=== PATIENT | male | born 1995 | race Caucasian/White ===

== ENCOUNTER 2018-03-23 11:19 | Emergency (ER) | payer OTHER ==
[2018-03-23 11:26] VITALS: BP 120/78; PULSE 88; TEMP 98.7; BMI 26.4
[2018-03-23] MEDS ORDERED: IBUPROFEN 400 MG TABLET (FP) PO ONE ×2 (12:05→12:13)
[2018-03-23] MEDS ORDERED: TOBRAMYCIN 0.3% OPHTH SOLN 5 ML BOTTLE OD ONE (12:24)
--- NOTE | 2018-03-23 12:24 | PDOC ---
History of Present Illness - General Chief Complaint: Respiratory Stated Complaint: COLD SYMPTOMS Time Seen by Provider: 03/23/18 11:33 History Source: Patient Exam Limitations: No Limitations - History of Present Illness Initial Comments: 03/23/18 12:25 , Hearing-impaired patinet able to read lips and mother helping sign language with complaints of, Moist cough came for evaluation of fevers, cough that's nonproductive, generalized body aches, runny nose and sore throat pain 4-5 days , but woke up today with bilateral erythema to eyes and yellowish drainage. Visual acuity is intact, denies any recent trauma or pain 03/23/18 14:58 03/23/18 15:00 Timing/Duration: reports: getting worse Severity: reports: mild, moderate Associated Symptoms: reports: chest pain/soreness, cough, earache, fever/chills , nasal congestion, nasal drainage, sore throat Past History - Travel Traveled outside of the country in the last 30 days: No Close contact w/someone who was outside of country & ill: No - Past Medical History Allergies/Adverse Reactions: Allergies Allergy/AdvReac Type Severity Reaction Status Date / Time No Known Allergies Allergy Verified 03/23/18 11:26 Home Medications: Ambulatory Orders Tobramycin 0.3% Ophth Soln [Tobrex Ophthalmic Solution -] 2 drop OS QID #1 drops 03/23/18 COPD: No Other medical history: deaf - Surgical History Abdominal Surgery: Yes (hernia repair) - Suicide/Smoking/Psychosocial Hx Smoking History: Never smoked Review of Systems - Review of Systems Able to Perform ROS?: Yes Is the patient limited Citizen [place] proficient: Yes Constitutional: Yes: Symptoms Reported, See HPI, Fever, Malaise HEENTM: Yes: Symptoms Reported, See HPI, Eye Pain, Blurred Vision, Tearing Respiratory: Yes: See HPI, Cough. No: Symptoms reported ABD/GI: No: Symptoms Reported : No: Symptoms Reported (nonproductive) Integumentary: No: Symptoms Reported All Other Systems: Reviewed and Negative *Physical Exam - Vital Signs Last Vital Signs Temp Pulse Resp BP Pulse Ox 98.7 F 88 18 120/78 99 03/23/18 11:22 03/23/18 11:22 03/23/18 11:22 03/23/18 11:22 03/23/18 11:22 - Physical Exam General Appearance: Yes: Nourished, Appropriately Dressed, Apparent Distress, Mild Distress HEENT: positive: Normal ENT Inspection, TMs Normal (congested but landmarks easily visualized), Pharynx Normal, Nasal Congestion, Rhinorrhea, Other ( bilateral erythematous conjunctiva with mild upper lid swelling. Has some yellowish drainage to bilateral inner canthus.). negative: Sinus Tenderness Neck: positive: Supple. 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 Treated with tobramycin drops for bilateral conjunctivitis, will follow up as needed *DC/Admit/Observation/Transfer Diagnosis at time of Disposition: Upper respiratory infection Qualifiers: URI type: unspecified viral URI Qualified Code(s): J06.9 - Acute upper respiratory infection, unspecified Conjunctivitis Qualifiers: Conjunctivitis type: acute Acute conjunctivitis type: unspecified Laterality: bilateral Qualified Code(s): H10.33 - Unspecified acute conjunctivitis, bilateral - Discharge Dispostion Disposition: HOME Condition at time of disposition: Stable Decision to Admit order: No - Prescriptions Prescriptions: Tobramycin 0.3% Ophth Soln [Tobrex Ophthalmic Solution -] 2 drop OS QID #1 drops - Referrals Referrals: Karen Iniguez FNP [Primary Care Provider] - - Patient Instructions Printed Discharge Instructions: DI for Conjunctivitis Additional Instructions: Rest, avoid rubbing eyes Wash hands frequently as this is very contagious Wash hands, use eye drops as directed, wash hands after use Do not share eyedrops with other person to may become infected as this will infect them Tobramycin drops 2 drops to affected eye 4 times a day for 5 days Avoid contact with others until redness and discharge is gone from eyes. Followup with ophthalmology or private physician as needed - Post Discharge Activity Forms/Work/School Notes: Back to Work
[2018-03-23] MEDS ORDERED: TOBRAMYCIN 0.3% OPHTH SOLN 5 ML BOTTLE ONE (12:37)
== END 2018-03-23 13:32 | disposition home or self-care (01) ==
LOC: JERFT 11:19
DX: H10.33 Unspecified acute conjunctivitis, bilateral (principal); J06.9 Acute upper respiratory infection, unspecified
CPT/HCPCS: 87804; 99281-25